=== PATIENT | female | born 1960 | race Hispanic/Latino ===

== ENCOUNTER 2017-12-04 17:39 | Emergency (ER) | payer OTHER ==
--- NOTE | 2017-12-04 19:45 | ER ---
Nurse's Notes [facility] Name: Caitlin Abernathy Age: 56 yrs Sex: Female : 1960 Arrival Date: 12/04/2017 Time: 17:43 Bed Waiting Private MD: Diagnosis: poison norm Presentation: 12/04 17:59 Presenting complaint: Patient states: i have poison norm on both arms and both legs for hj 2 weeks already, i tried everything it wont go away; its itchy;. Transition of care: patient was not received from another setting of care. Onset of symptoms was December 04, 2017. Risk Assessment: Do you want to hurt yourself or someone else? Patient reports no desire to harm self or others. Initial Sepsis Screen: Does the patient meet any 2 criteria? No. Patient's initial sepsis screen is negative. Does the patient have a suspected source of infection? No. Patient's initial sepsis screen is negative. Care prior to arrival: None. 17:59 Method Of Arrival: Ambulatory 17:59 Acuity: CANDIDA 4 hj Triage Assessment: 18:02 General: Appears in no apparent distress. uncomfortable, Behavior is calm, cooperative, hj appropriate for age. Pain: Denies pain. 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 - Social history:: Smoking status: Patient/guardian denies using tobacco, Patient/guardian denies using alcohol. - Ebola Screening: : Patient negative for fever greater than or equal to 101.5 degrees Fahrenheit, and additional compatible Ebola Virus Disease symptoms Patient denies exposure to infectious person Patient denies travel to an Ebola-affected area in the 21 days before illness onset. Screenin:02 Abuse screen: Denies threats or abuse. Denies injuries from another. Nutritional hj screening: No deficits noted. Tuberculosis screening: No symptoms or risk factors identified. Fall Risk None identified. Assessment: 19:40 General: Appears in no apparent distress. comfortable, Behavior is calm, cooperative, aa1 appropriate for age. Pain: Denies pain. Neuro: Level of Consciousness is awake, alert, obeys commands, Oriented to person, place, time, situation, Moves all extremities. Full function Gait is steady, Speech is normal. Respiratory: Airway is patent Respiratory effort is even, unlabored, Respiratory pattern is regular, symmetrical. GI: No signs and/or symptoms were reported involving the gastrointestinal system. : No signs and/or symptoms were reported regarding the genitourinary system. EENT: No signs and/or symptoms were reported regarding the EENT system. Derm: Skin is intact, is healthy with good turgor, Skin is pink, warm \T\ dry. Rash noted that is on right arm, left arm, right leg and left leg. Musculoskeletal: Circulation, motion, and sensation intact. Capillary refill < 3 seconds, Range of motion: intact in all extremities. Vital Signs: 18:03 BP 119 / 64; Pulse 83; Resp 18; Temp 98.1(O); Pulse Ox 97% on R/A; Weight 83.91 kg; hj Height 5 ft. 3 in. (160.02 cm); Pain 0/10; 19:40 BP 108 / 63; Pulse 72; Resp 16; Pulse Ox 98% on R/A; Pain 0/10; aa1 18:03 Body Mass Index 32.77 (83.91 kg, 160.02 cm) ED Course: 17:43 Patient arrived in ED. rg4 18:00 Triage completed. hj 18:03 Arm band placed on right wrist. hj 18:04 Patient has correct armband on for positive identification. Bed in low position. Call light in reach. Side rails up X 1. 19:40 No provider procedures requiring assistance completed. Patient did not have IV access aa1 during this emergency room visit. 19:42 Ricky Cheung MD is Attending Physician. ps1 19:48 [place], Kimberly, RN is Primary Nurse. aa1 Administered Medications: 19:40 Drug: Decadron 10 mg Route: IM; Site: right deltoid; aa1 19:48 Follow up: Response: No adverse reaction aa1 Outcome: 19:45 Discharge ordered by . ps1 19:48 Discharged to home ambulatory. aa1 19:48 Condition: good 19:48 Discharge instructions given to patient, Instructed on discharge instructions, follow up and referral plans. medication usage, Demonstrated understanding of instructions, follow-up care, medications, Prescriptions given X 1. 19:49 Patient left the ED. aa1 Signatures: Kimberly Cintron RN RN aa1 Charanjit Osorio RN RN hj Yvette Hodges rg4 Ricky Cheung MD MD ps1 Corrections: (The following items were deleted from the chart) 18:05 18:03 Pulse 83bpm; Resp 18bpm; Pulse Ox 97% RA; Temp 98.1F Oral; 83.91 kg; Height 5 ft. hj 3 in.; BMI: 32.7; Pain 0/10; hj
--- NOTE | 2017-12-04 19:45 | EDPHYS ---
Physician Documentation [facility] Name: Caitlin Abernathy Age: 56 yrs Sex: Female : 1960 Arrival Date: 12/04/2017 Time: 17:43 Bed Waiting Private MD: ED Physician Ricky Cheung HPI: 12/04 19:42 This 56 yrs old Female presents to ER via Ambulatory with complaints of POISON ps1 NELI. 19:42 patient with 2 week history of poison neli. States that she has washed all of her ps1 clothes but cant get rid of it. She has generalized rash consistent with complaint. No fevers or difficulty breathing. 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 - Social history:: Smoking status: Patient/guardian denies using tobacco, Patient/guardian denies using alcohol. - Ebola Screening: : Patient negative for fever greater than or equal to 101.5 degrees Fahrenheit, and additional compatible Ebola Virus Disease symptoms Patient denies exposure to infectious person Patient denies travel to an Ebola-affected area in the 21 days before illness onset. ROS: 19:42 Constitutional: Negative for fever, chills, and weight loss, Eyes: Negative for injury, ps1 pain, redness, and discharge, Cardiovascular: Negative for chest pain, palpitations, and edema, Respiratory: Negative for shortness of breath, cough, wheezing, and pleuritic chest pain, Abdomen/GI: Negative for abdominal pain, nausea, vomiting, diarrhea, and constipation, MS/Extremity: Negative for injury and deformity, Neuro: Negative for headache, weakness, numbness, tingling, and seizure. 19:42 Skin: Positive for rash. Exam: 19:42 Constitutional: This is a well developed, well nourished patient who is awake, alert, ps1 and in no acute distress. Head/Face: Normocephalic, atraumatic. Eyes: Pupils equal round and reactive to light, extra-ocular motions intact. Lids and lashes normal. Conjunctiva and sclera are non-icteric and not injected. Chest/axilla: Normal chest wall appearance and motion. Nontender with no deformity. No lesions are appreciated. Cardiovascular: Regular rate and rhythm. No gallops, murmurs, or rubs. Normal PMI, no JVD. No pulse deficits. Respiratory: Lungs have equal breath sounds bilaterally, clear to auscultation and percussion. No rales, rhonchi or wheezes noted. No increased work of breathing, no retractions or nasal flaring. MS/ Extremity: Pulses equal, no cyanosis. Neurovascular intact. Full, normal range of motion. Neuro: Awake and alert, GCS 15, oriented to person, place, time, and situation. Cranial nerves II-XII grossly intact. Sensory grossly intact. 19:42 Skin: contact dermatitis. ps1 Vital Signs: 18:03 BP 119 / 64; Pulse 83; Resp 18; Temp 98.1(O); Pulse Ox 97% on R/A; Weight 83.91 kg; hj Height 5 ft. 3 in. (160.02 cm); Pain 0/10; 19:40 BP 108 / 63; Pulse 72; Resp 16; Pulse Ox 98% on R/A; Pain 0/10; aa1 18:03 Body Mass Index 32.77 (83.91 kg, 160.02 cm) hj MDM: 19:45 Patient medically screened. ps1 19:45 Data reviewed: vital signs, nurses notes. Counseling: I had a detailed discussion with ps1 the patient and/or guardian regarding: the historical points, exam findings, and any diagnostic results supporting the discharge/admit diagnosis, to return to the emergency department if symptoms worsen or persist or if there are any questions or concerns that arise at home. Administered Medications: 19:40 Drug: Decadron 10 mg Route: IM; Site: right deltoid; aa1 19:48 Follow up: Response: No adverse reaction aa1 Disposition: 12/04/17 19:45 Discharged to Home. Impression: poison neli . - Condition is Stable. - Discharge Instructions: Contact Dermatitis, [id number]. - Prescriptions for Hydroxyzine HCl 25 mg Oral Tablet - take 1 tablet by ORAL route every 6 hours As needed; 30 tablet. - Medication Reconciliation Form, Thank You Letter, Antibiotic Education, Prescription Opioid Use form. - Follow up: Private Physician; When: As needed; Reason: Re-evaluation by your physician. Follow up: Emergency Department; When: As needed; Reason: Worsening of condition. - Problem is an ongoing problem. - Symptoms are unchanged. Signatures: Kimberly Cintron RN RN aa1 Charanjit Osorio RN RN hj Ricky Cheung MD MD ps1 Corrections: (The following items were deleted from the chart) 19:44 19:42 Skin: Exam negative for rash, ps1 ps1 19:49 19:45 12/04/2017 19:45 Discharged to Home. Impression: poison neli . Condition is aa1 Stable. Forms are Medication Reconciliation Form, Thank You Letter, Antibiotic Education, Prescription Opioid Use. Follow up: Private Physician; When: As needed; Reason: Re-evaluation by your physician. Follow up: Emergency Department; When: As needed; Reason: Worsening of condition. Problem is an ongoing problem. Symptoms are unchanged. ps1
[2017-12-04] MEDS ORDERED: DEXAMETHASONE 10 MG/ML VIAL ONE (19:48)
== END 2017-12-04 19:49 | disposition home or self-care (01) ==
LOC: ER 17:39
DX: L23.7 Allergic contact dermatitis due to plants, except food (principal); I10 Essential (primary) hypertension; E11.9 Type 2 diabetes mellitus without complications; E78.5 Hyperlipidemia, unspecified; Z88.6 Allergy status to analgesic agent; Z88.8 Allergy status to other drugs, medicaments and biological substances
CPT/HCPCS: 96372; 99283; J1100

== ENCOUNTER 2019-05-15 13:48 | Emergency (ER) | payer OTHER ==
--- NOTE | 2019-05-15 15:39 | RAD REPORT ---
EXAM DESCRIPTION: RAD - Ankle Right 3 View - 05/15/2019 3:30 pm CLINICAL HISTORY: Right ankle pain status post fall FINDINGS: No acute fracture or dislocation is seen. Calcific/bony density adjacent to the lateral malleolus probably is chronic
--- NOTE | 2019-05-15 15:40 | RAD REPORT ---
EXAM DESCRIPTION: RAD - Pelvis - 05/15/2019 3:30 pm CLINICAL HISTORY: Pelvic pain status post injury FINDINGS: No fracture or dislocation is seen. Osteoporosis
--- NOTE | 2019-05-15 15:40 | RAD REPORT ---
EXAM DESCRIPTION: RAD - Lumbar Spine 3 Views - 05/15/2019 3:30 pm CLINICAL HISTORY: Back pain FINDINGS: The alignment of the lumbar spine is satisfactory. No fracture or dislocation is seen. Osteoporosis
[2019-05-15] MEDS ORDERED: CODEINE 30MG/APAP 300MG TAB ONE (16:02)
--- NOTE | 2019-05-15 16:27 | EDPHYS ---
Physician Documentation [facility] Name: Caitlin Abernathy Age: 58 yrs Sex: Female : 1960 Arrival Date: 05/15/2019 Time: 13:53 Bed 17 Private MD: ED Physician Eugenio Edwards HPI: 05/15 14:30 This 58 yrs old Female presents to ER via Ambulatory with complaints of Fall jmm Injury. 14:30 Details of fall: The patient fell from an upright position. Onset: The symptoms/episode jmm began/occurred acutely, 3 day(s) ago. Associated injuries: The patient sustained injury to the low back, lower extremity. This is a 58 year old female with a history of dm, hlp, htn that presents to the ED with complaints of neck pain, headache, lower back pain, left leg pain and right ankle pain after a fall which occurred on Monday. Patient states she fell backwards holding heavy objects. Denies vomiting. . Historical: - Allergies: 14:01 Aleve; jl7 14:01 Ultram; jl7 - Home Meds: 14:01 alendronate 70 mg/75 mL Oral soln 75 mL once wkly [Active]; biotin 10,000 mcg Oral cap jl7 [Active]; lisinopril 20 mg Oral tab 1 tab once daily [Active]; metformin 1,000 mg Oral tab 1 tab 2 times per day [Active]; simvastatin 40 mg Oral tab 1 tab once daily [Active]; ploglitazone [Active]; pioglitazone 45 mg oral tab [Active]; - PMHx: 14:01 Diabetes - NIDDM; Hyperlipidemia; Hypertension; jl7 - PSHx: 14:01 None; jl7 - Immunization history:: Adult Immunizations up to date. - Social history:: Smoking status: Patient/guardian denies using tobacco. - Ebola Screening: : No symptoms or risks identified at this time. ROS: 14:30 Constitutional: Negative for fever, chills, and weight loss, Cardiovascular: Negative jmm for chest pain, palpitations, and edema, Respiratory: Negative for shortness of breath, cough, wheezing, and pleuritic chest pain. 14:30 MS/extremity: Positive for injury or acute deformity, pain. 14:30 Neuro: Positive for headache. 14:30 All other systems are negative. Exam: 14:30 Constitutional: This is a well developed, well nourished patient who is awake, alert, jmm and in no acute distress. Head/Face: atraumatic. Eyes: EOMI, no conjunctival erythema appreciated ENT: Moist Mucus Membranes Neck: Trachea midline, Supple 14:30 Chest/axilla: Normal chest wall appearance and motion. 14:30 Back: Normal ROM 14:30 Neck: C-spine: appears grossly normal, ROM/movement: is normal. 14:30 Chest/axilla: Inspection: normal. 14:30 Cardiovascular: Rate: normal, Rhythm: regular, Pulses: no pulse deficits are appreciated. 14:30 Respiratory: the patient does not display signs of respiratory distress, Respirations: normal, Breath sounds: are clear throughout. 14:30 Abdomen/GI: Inspection: abdomen appears normal, Bowel sounds: normal, Palpation: abdomen is soft and non-tender. 14:30 Back: lower lumbar tenderness on palpation. 14:30 Musculoskeletal/extremity: ROM: intact in all extremities, ecchymosis noted to the left thigh, no bony tenderness appreciated, right lateral malleolus ttp, no pain at the base of the 5th metatarsal, full dorsalis pulse, compartments are soft, NVI. 14:30 Skin: ecchymosis noted to the left thigh. 14:30 Neuro: Orientation: is normal, Mentation: is normal, Memory: is normal. 14:30 Psych: Behavior/mood is pleasant, cooperative. Vital Signs: 14:01 BP 140 / 66; Pulse 88; Resp 15 S; Temp 98.2(O); Pulse Ox 98% on R/A; Weight 74.84 kg jl7 (R); Height 5 ft. 2 in. (157.48 cm) (R); Pain 4/10; 14:01 Body Mass Index 30.18 (74.84 kg, 157.48 cm) jl7 MDM: 14:20 Patient medically screened. [facility] 16:21 Data reviewed: vital signs, nurses notes. Counseling: I had a detailed discussion with jeffrey the patient and/or guardian regarding: the historical points, exam findings, and any diagnostic results supporting the discharge/admit diagnosis, radiology results, the need for outpatient follow up, to return to the emergency department if symptoms worsen or persist or if there are any questions or concerns that arise at home. ED course: Patient is alert and non toxic in appearance in the ED. Patient advised to follow up with pcp for reevaluation. Patient otherwise given strict return precautions. Patient understood and agrees with the plan of care. . 05/15 14:30 Order name: Lumbar Spine (3 Views) XRAY; Complete Time: 15:57 jm 05/15 14:30 Order name: Pelvis XRAY; Complete Time: 15:57 [facility] 05/15 14:30 Order name: Ankle Right 3 View XRAY; Complete Time: 15:57 [facility] Administered Medications: 16:03 Drug: Tylenol #3 (300 mg-30 mg) 1 tablet Route: PO; em Disposition: 16:55 Co-signature as Attending Physician, Eugenio Edwards MD I agree with the assessment and kdr plan of care. Disposition: 05/15/19 16:26 Discharged to Home. Impression: Sprain of ankle, Strain of muscle, fascia and tendon of lower back, Contusion of left lower leg. - Condition is Stable. - Discharge Instructions: Ankle Sprain, Back Pain, Adult. - Prescriptions for Zanaflex 4 mg Oral Tablet - take 1 tablet by ORAL route every 8 hours As needed; 20 tablet. - Medication Reconciliation Form, Thank You Letter, Antibiotic Education, Prescription Opioid Use form. - Follow up: Private Physician; When: 2 - 3 days; Reason: Recheck today's complaints, Continuance of care, Re-evaluation by your physician. Signatures: Dispatcher [employer] EDEugenio Hoffman MD MD kdr Mickail, Joel, PA PA Destin Greenfield RN RN em Janna Byrnes RN RN iw Haley Mauro RN RN jl7 Corrections: (The following items were deleted from the chart) 16:27 16:26 05/15/2019 16:26 Discharged to Home. Impression: Sprain of ankle; Strain of jmm muscle, fascia and tendon of lower back. Condition is Stable. Forms are Medication Reconciliation Form, Thank You Letter, Antibiotic Education, Prescription Opioid Use. Follow up: Private Physician; When: 2 - 3 days; Reason: Recheck today's complaints, Continuance of care, Re-evaluation by your physician. [facility] 16:50 16:27 05/15/2019 16:26 Discharged to Home. Impression: Sprain of ankle; Strain of iw muscle, fascia and tendon of lower back; Contusion of left lower leg. Condition is Stable. Forms are Medication Reconciliation Form, Thank You Letter, Antibiotic Education, Prescription Opioid Use. Follow up: Private Physician; When: 2 - 3 days; Reason: Recheck today's complaints, Continuance of care, Re-evaluation by your physician. jeffrey
--- NOTE | 2019-05-15 16:27 | ER ---
Nurse's Notes [facility] Name: Caitlin Abernathy Age: 58 yrs Sex: Female : 1960 Arrival Date: 05/15/2019 Time: 13:53 Bed 17 Private MD: Diagnosis: Sprain of ankle;Strain of muscle, fascia and tendon of lower back;Contusion of left lower leg Presentation: 05/15 13:57 Presenting complaint: Patient states: "Monday I had 2 large tank fall on me and I hit jl7 my head." c/o pain to back of head, back, sacrum, bilateral ribs. Denies LOC. Transition of care: patient was not received from another setting of care. Onset of symptoms was May 12, 2019. Risk Assessment: Do you want to hurt yourself or someone else? Patient reports no desire to harm self or others. Initial Sepsis Screen: Does the patient meet any 2 criteria? No. Patient's initial sepsis screen is negative. Does the patient have a suspected source of infection? No. Patient's initial sepsis screen is negative. Care prior to arrival: None. 13:57 Method Of Arrival: Ambulatory [facility] 13:57 Acuity: CANDIDA 4 jl7 Triage Assessment: 14:01 General: Appears in no apparent distress. uncomfortable, Behavior is calm, cooperative, jl7 appropriate for age, Smells of. Pain: Complains of pain in back Pain currently is 4 out of 10 on a pain scale. Historical: - Allergies: 14:01 Aleve; jl7 14:01 Ultram; jl7 - Home Meds: 14:01 alendronate 70 mg/75 mL Oral soln 75 mL once wkly [Active]; biotin 10,000 mcg Oral cap jl7 [Active]; lisinopril 20 mg Oral tab 1 tab once daily [Active]; metformin 1,000 mg Oral tab 1 tab 2 times per day [Active]; simvastatin 40 mg Oral tab 1 tab once daily [Active]; ploglitazone [Active]; pioglitazone 45 mg oral tab [Active]; - PMHx: 14:01 Diabetes - NIDDM; Hyperlipidemia; Hypertension; jl7 - PSHx: 14:01 None; jl7 - Immunization history:: Adult Immunizations up to date. - Social history:: Smoking status: Patient/guardian denies using tobacco. - Ebola Screening: : No symptoms or risks identified at this time. Screenin:45 Abuse screen: Denies threats or abuse. Nutritional screening: No deficits noted. em Tuberculosis screening: No symptoms or risk factors identified. Fall Risk None identified. Assessment: 14:30 General: Appears in no apparent distress. comfortable, Behavior is calm, cooperative. em Pain: Complains of pain in back Pain currently is 4 out of 10 on a pain scale. Pain began 2-3 days ago. Neuro: Level of Consciousness is awake, alert, obeys commands, Oriented to person, place, time, situation, Appropriate for age. Cardiovascular: Capillary refill < 3 seconds Patient's skin is warm and dry. Respiratory: Airway is patent Respiratory effort is even, unlabored, Respiratory pattern is regular, symmetrical. Derm: Skin is intact, is healthy with good turgor, Skin is pink, warm \\T\\ dry. Musculoskeletal: Capillary refill < 3 seconds, Range of motion: intact in all extremities. 15:55 Reassessment: request something for pain, rates pain 6/10, provider notified. em Vital Signs: 14:01 BP 140 / 66; Pulse 88; Resp 15 S; Temp 98.2(O); Pulse Ox 98% on R/A; Weight 74.84 kg jl7 (R); Height 5 ft. 2 in. (157.48 cm) (R); Pain 4/10; 14:01 Body Mass Index 30.18 (74.84 kg, 157.48 cm) jl7 ED Course: 13:53 Patient arrived in ED. mr 13:59 Triage completed. [facility] 14:01 Arm band placed on right wrist. [facility] 14:12 Destin Quintana, RN is Primary Nurse. em 14:15 Mian Crow PA is PHCP. [facility] 14:15 Eugenio Edwards MD is Attending Physician. [facility] 14:30 Patient has correct armband on for positive identification. Bed in low position. Call em light in reach. Adult w/ patient. 15:30 Lumbar Spine (3 Views) XRAY In Process Unspecified. EDMS 15:30 Pelvis XRAY In Process Unspecified. EDMS 15:30 Ankle Right 3 View XRAY In Process Unspecified. EDMS 16:50 No provider procedures requiring assistance completed. Patient did not have IV access iw during this emergency room visit. Administered Medications: 16:03 Drug: Tylenol #3 (300 mg-30 mg) 1 tablet Route: PO; em Outcome: 16:26 Discharge ordered by . jeffrey 16:49 Discharged to home ambulatory. iw 16:49 Condition: good 16:49 Discharge instructions given to patient, Instructed on discharge instructions, follow up and referral plans. medication usage, Demonstrated understanding of instructions, follow-up care, medications, Prescriptions given X 1. 16:50 Patient left the ED. iw Signatures: Dispatcher [employer] EDMian Gray PA PA jmm Rivera, Mary mr QuintanaDestin, RN RN Janan Valle RN Haley Vasquez RN RN jl7
[2019-05-15 17:02] VITALS: BP 140/66; TEMP 98.2; O2SAT 98
== END 2019-05-15 16:50 | disposition home or self-care (01) ==
LOC: ER 13:48
DX: S39.012A Strain of muscle, fascia and tendon of lower back, initial encounter (principal); S80.12XA Contusion of left lower leg, initial encounter; S93.401A Sprain of unspecified ligament of right ankle, initial encounter; W19.XXXA Unspecified fall, initial encounter; Y93.89 Activity, other specified; Y92.9 Unspecified place or not applicable; Z88.8 Allergy status to other drugs, medicaments and biological substances; I11.0 Hypertensive heart disease with heart failure; E11.9 Type 2 diabetes mellitus without complications; E78.5 Hyperlipidemia, unspecified
CPT/HCPCS: 72100; 72170; 99283